=== PATIENT | male | born 1960 | race Caucasian/White ===

== ENCOUNTER 2016-11-29 06:48 | Day surgery (SDC) | payer MEDICARE, OTHER ==
[~2016-11-29] VITALS: Ht 182.9 cm; Wt 109.1 kg
[~2016-11-29 06:48] MED LIST: AMLO10TA2 PO; ATOR40TA16 PO; BENA25TA3 PO; CYCL1TAB29 PO; DIAZ10TA PO; DOXA1TAB34 PO; FLUT1SPR5 EACH NARE; FURO40TA PO; HYDR-3580 PO; METH10TA PO; METO10TA PO; PANT40TA3 PO; PRAM0.5T PO; TRAZ150T75 PO
[2016-11-29 07:17] VITALS: BP 165/97; PULSE 75; RESP 20; TEMP 98.1; O2SAT 94
[2016-11-29] MEDS ORDERED: LACTATED RINGER'S 1000 ML INJ 1,000 ML IV SCH ×2 (07:30→09:47)
[2016-11-29] MEDS ORDERED: DIAZEPAM 5 MG TAB PO SCH (07:30)
[2016-11-29 08:31] LABS: AUTOMATED NEUTROPHIL # 3.3 TH/MM3 (1.8-7.7); BASOPHIL # 0.1 TH/MM3 (0-0.2); BASOPHIL % 1.2 % (0.0-2.0); EOSINOPHIL # 0.2 TH/MM3 (0-0.4); EOSINOPHIL % 3.8 % (0.0-4.0); HEMO FLAGS DIFF FINAL; LYMPH % 29.9 % (9.0-44.0); LYMPHOCYTE # 1.7 TH/MM3 (1.0-4.8); MEAN CELL VOLUME 90.8 FL (80.0-100.0); MEAN CORPUSCULAR HGB CONC 33.1 % (32.0-36.0); MONO % 7.4 % (0.0-8.0); NEUT % 57.7 % (16.0-70.0); PLATELET COUNT 129 TH/MM3 (150-450); RED BLOOD COUNT 4.63 MIL/MM3 (4.50-5.90); RED CELL DISTRIBUTION WIDTH 13.9 % (11.6-17.2); WHITE BLOOD COUNT 5.7 TH/MM3 (4.0-11.0)
[2016-11-29 08:37] LABS: APTT (PATIENT) 29.9 SEC (24.3-30.1); INTERNATIONAL NORMALIZED RATIO 0.9 RATIO; PROTHROMBIN TIME - PATIENT 10.2 SEC (9.8-11.6)
[2016-11-29 08:47] LABS: BICARBONATE 32.1 MEQ/L (21.0-32.0); POTASSIUM 3.7 MEQ/L (3.5-5.1)
[2016-11-29] MEDS ORDERED: SODIUM CHLOR 0.9% 1000 ML INJ 1,000 ML IV PRN (09:47)
--- NOTE | 2016-11-29 09:49 | PD.RAD ---
Post Procedure Progress Note Pre Procedure Diagnosis: (1) Cervical disc disorder with radiculopathy (2) Postlaminectomy syndrome, lumbar (3) Facet arthropathy, lumbar (4) Lumbar degenerative disc disease Post Procedure Diagnosis: (1) Postlaminectomy syndrome, lumbar (2) Cervical disc disorder with radiculopathy (3) Degenerative cervical spinal stenosis (4) Degenerative disc disease, cervical (5) Facet arthropathy, lumbar (6) Lumbar degenerative disc disease (7) Low back pain Procedure Date: Nov 29, 2016 Supervising Radiologist: Gavino Johnson Proceduralist/Assist: Angela Carrintgon, RT(R), Clotilde Blancas RT(R), Clotilde Marques RT(R)() Estimated blood loss: 0 Plan of Activity Patient to Unit: ROPU Patient Condition: Good Additional Comments: puncture at L2-3 See PACS Report for procedural detail/treatment Gavino Johnson MD Nov 29, 2016 09:49
[2016-11-29 09:55] VITALS: BP 158/84; PULSE 68; RESP 20; TEMP 97.9; O2SAT 93
[2016-11-29] MEDS ORDERED: oxyCODONE/ACETAMINOPHEN 5 MG/325 MG TAB PO PRN (10:00)
[2016-11-29] MEDS ORDERED: MORPHINE SULFATE 4 MG/ML INJ IM PRN (10:00)
[2016-11-29] MEDS ORDERED: ONDANSETRON HCL 4 MG/2 ML VIAL IV PRN (10:00)
[2016-11-29] MEDS ORDERED: ACETAMINOPHEN 325 MG TAB PO PRN (10:00)
--- NOTE | 2016-11-29 10:43 | RADRPT ---
EXAM DATE/TIME: 11/29/2016 09:39 [facility] COMPARISON: No previous studies available for comparison. INDICATIONS : Patient with a history of spinal stenoisi. MEDICAL HISTORY : CHF HTN GERD Renal Disease Rheumatoid Arthritis SURGICAL HISTORY : Laminectomy Spinal fusion Spinal stimulator Kidney removal ENCOUNTER: Initial ACUITY: > 1 year PAIN SCORE: 7/10 LOCATION: Low back LUMBAR PUNCTURE TIME: 0939 hours FLUORO TIME: 0.63 minutes IMAGE SERIES: 2 CONTRAST: 18 cc Omnipaque (iohexol) 300 ACCESS LEVEL: L2-3 PROCEDURE : 1. Fluoroscopic guided lumbar puncture. 2. Instillation of intrathecal contrast. 3. Lumbar myelogram. 4. Cervical myelogram. The risks, benefits and alternatives to the procedure were explained and verbal and written consent w as obtained. The site was prepped in sterile fashion. Full sterile technique was used, including ca p, mask, sterile gloves and gown and a large sterile sheet. Hand hygiene and 2% chlorhexidine and/or betadine/alcohol prep was utilized per protocol for cutaneous antisepsis. The skin and subcutaneous tissues were infiltrated with local anesthetic solution. With fluoroscopic guidance the lumbar thecal sac was punctured at level above and a diagnostic quanti ty of contrast is present in the subarachnoid space. Following the lumbar radiographs contrast was pl aced in the cervical region under fluoroscopic guidance. The patient tolerated procedure well and there were no complications. CT scan is to be performed for further evaluation. CONCLUSION: Uncomplicated lumbar and cervical myelogram as above. CT scan is to be performed for further evaluat ion. Gavino Johnson MD on November 29, 2016 at 10:40 Board Certified Radiologist. This report was verified electronically.
--- NOTE | 2016-11-29 11:37 | RADRPT ---
EXAM DATE/TIME: 11/29/2016 10:47 [facility] COMPARISON: No previous studies available for comparison. INDICATIONS : Post Myelogram. RADIATION DOSE: 30.81 CTDIvol (mGy) CT of thecervical spine was performed post myelogram. MEDICAL HISTORY : SURGICAL HISTORY : ENCOUNTER: Subsequent ACUITY: 1 day PAIN SCALE: LOCATION: TECHNIQUE: Volumetric scanning of the cervical spine was performed. Multiplanar reconstructions in the sagittal, coronal and oblique axial planes were performed. Using automated exposure control and adjustment o f the mA and/or kV according to patient size, radiation dose was kept as low as reasonably achievable to obtain optimal diagnostic quality images. FINDINGS: VERTEBRAE: Normal vertebral body height. No abnormal focal bony lesion. ALIGNMENT: Sagittal alignment is maintained. SOFT TISSUES: Visualized paraspinal soft tissues are within normal limits. thyroid appears unremarkable by CT. Visu alized lung apices are clear. C2-C3: The bony spinal canal is normal in size. No evidence of disc bulge or herniation. The neural forami na are bilaterally patent. C3-C4: Central disc protrusion with mild effacement of the anterior thecal sac. Mild right and moderate left facet arthropathy. Central canal is patent and measuring 1.3 cm. No significant neuroforaminal steno sis. C4-C5: Mild diffuse disc bulge with subtle posterior osteophytes. Central canal is patent. No significant ne ural frontal stenosis. C5-C6: Moderate disc space loss with endplate sclerosis and eccentric posterior left-sided osteophyte format ion. Resultant eccentric effacement of the left anterior lateral recess. Moderate to severe left fora karis stenosis secondary to osteophyte. C6-C7: Moderate severe disc space loss with endplate sclerosis and anterior osteophyte formation. No signifi cant central canal stenosis. Mild to moderate bilateral neuroforaminal stenosis secondary to osteophy te. C7-T1: Moderate disc space loss with minimal osteophyte formation. No significant central canal stenosis. No significant neuroforaminal stenosis. CONCLUSION: 1. Multilevel degenerative spondylosis of the cervical spine with effacement of the left anterior la teral recess secondary to eccentric posterior left-sided osteophyte formation at C5-6. 2. There are varying degrees of neural foraminal stenosis most prominently at C5-6 and C6-7, as above . Gavino Johnson MD on November 29, 2016 at 11:12 Board Certified Radiologist. This report was verified electronically.
--- NOTE | 2016-11-29 12:05 | RADRPT ---
EXAM DATE/TIME: 11/29/2016 10:54 [facility] COMPARISON: No previous studies available for comparison. INDICATIONS : Post Myelogram. RADIATION DOSE: 42.05 CTDIvol (mGy) CT of the lumbar spine was performed post myelogram. MEDICAL HISTORY : SURGICAL HISTORY : ENCOUNTER: Subsequent ACUITY: 1 day PAIN SCALE: 1/10 LOCATION: TECHNIQUE: Volumetric scanning of the lumbar spine was performed. Multiplanar reconstructions in the sagittal, coronal and oblique axial planes were performed. Using automated exposure control and adjustment of the mA and/or kV according to patient size, radiation dose was kept as low as reasonably achievable t o obtain optimal diagnostic quality images. FINDINGS: VERTEBRAE: There are 6 apparent lumbar-type vertebral bodies. Vertebral body heights are intact. Posterior nabor a nd screw fixation extending from L5-S1. Hardware appears intact without evidence for significant loos ening. ALIGNMENT: Grade 1 retrolisthesis of L5 on L6. Grade 1 anterolisthesis of L6 on S1. Soft tissues: There are [address], anterior and posterior. Leads enter at T12-L1 and project ceph alad. Surgical clips in the left periaortic region consistent with prior nephrectomy. Mild atheroscle rotic calcifications of the abdominal aorta. T12-L1: The thecal sac has a normal diameter. No evidence of disc bulge or protrusion. The neural foramina are patent bilaterally. L1-L2: Subtle diffuse disc bulge without significant central canal or neuroforaminal stenosis. L2-L3: Minimal diffuse disc bulge without significant central canal or neuroforaminal stenosis. L3-L4: Mild diffuse disc bulge, mild ligamentum flavum hypertrophy and mild bilateral facet arthropathy. Hamlet tral canal measures 1.4 cm. Mild caudal right neural foraminal narrowing. L4-L5: Severe joint space loss and vacuum disc phenomenon with significant endplate sclerosis. Posterior ost eophyte complex with severe bilateral facet arthropathy. Central canal measures approximately 12 mm. Mild to moderate left and moderate right neuroforaminal stenosis due to osteophyte. L5-L6: L6 laminectomy. Partial bony fusion. Posterior osteophyte complex resulting in moderate right and sev ere left neural foraminal stenosis. L6-S1: S1 laminectomy. Partial bony fusion. Posterior ossified complex resulting in mild bilateral neurofora karis stenosis. CONCLUSION: 1. 6 apparent lumbar-type vertebral bodies with postsurgical features of prior L6 and S1 laminectomie s with posterior nabor and screw fixation of L5-S1. Hardware appears intact without evidence for loosen ing. 2. Moderate to severe multilevel degenerative spondylosis without significant central canal stenosis. Varying degrees of neural foraminal stenosis, as above. Gavino Johnson MD on November 29, 2016 at 11:36 Board Certified Radiologist. This report was verified electronically.
[2016-11-29] MEDS ORDERED: MORPHINE SULFATE 8 MG/ML INJ ONE (12:41)
[2016-11-29 13:20] VITALS: BP 135/74; PULSE 76; RESP 16; O2SAT 92
[2016-12-17] MEDS ORDERED: POTA1TAB4 PO (16:48)
[2016-12-18] MEDS ORDERED: BENA25CA4 PO (08:36)
[2016-12-18] MEDS ORDERED: TRAZ50TA12 PO (08:36)
== END 2016-11-29 13:30 | disposition home or self-care (01) ==
LOC: HROP 06:48 → HRIP 07:00 → HROP 13:30
PROVIDERS: ATTEND Neurological Surgery
DX: M96.1 Postlaminectomy syndrome, not elsewhere classified (principal); M50.10 Cervical disc disorder with radiculopathy, unspecified cervical region; M12.88 Other specific arthropathies, not elsewhere classified, other specified site; M50.322 Other cervical disc degeneration at C5-C6 level; M51.36 Other intervertebral disc degeneration, lumbar region; M48.02 Spinal stenosis, cervical region; M46.96 Unspecified inflammatory spondylopathy, lumbar region; I11.0 Hypertensive heart disease with heart failure; I50.9 Heart failure, unspecified; K21.9 Gastro-esophageal reflux disease without esophagitis; M06.9 Rheumatoid arthritis, unspecified; Z98.1 Arthrodesis status
CPT/HCPCS: 62305; 72125; 72131; 80048; 85025; 85610; 85730; J2270

== ENCOUNTER → 2016-12-17 | Outpatient (CLI) | payer MEDICARE, OTHER ==
[~2016-12-17] MED LIST changes: +BENA25CA4 PO; +POTA1TAB4 PO; +TRAZ50TA12 PO
[2016-12-17 12:30] LABS: AUTOMATED NEUTROPHIL # 4.6 TH/MM3 (1.8-7.7); BASOPHIL # 0.1 TH/MM3 (0-0.2); EOSINOPHIL # 0.3 TH/MM3 (0-0.4); EOSINOPHIL % 3.3 % (0.0-4.0); HEMATOCRIT 44.7 % (39.0-51.0); HEMO FLAGS DIFF FINAL; LYMPH % 28.4 % (9.0-44.0); LYMPHOCYTE # 2.3 TH/MM3 (1.0-4.8); MEAN CELL VOLUME 88.4 FL (80.0-100.0); MEAN CORPUSCULAR HEMOGLOBIN 30.8 PG (27.0-34.0); MEAN CORPUSCULAR HGB CONC 34.8 % (32.0-36.0); MONO % 9.9 % (0.0-8.0); NEUT % 57.4 % (16.0-70.0); PLATELET COUNT 165 TH/MM3 (150-450); RED BLOOD COUNT 5.06 MIL/MM3 (4.50-5.90); RED CELL DISTRIBUTION WIDTH 13.2 % (11.6-17.2); WHITE BLOOD COUNT 8.1 TH/MM3 (4.0-11.0)
[2016-12-17 12:39] LABS: APTT (PATIENT) 29.2 SEC (24.3-30.1); INTERNATIONAL NORMALIZED RATIO 0.9 RATIO
[2016-12-17 14:04] LABS: BLOOD, URINE NEG (NEG); GLUCOSE,URINE NEG (NEG); KETONE, URINE NEG (NEG); NITRITE,URINE NEG (NEG); PH, URINE 6.5 (5.0-8.5); URINE COLOR YELLOW (YELLW/STRAW)
[2016-12-17 14:06] LABS: COMMENT (UR) CULT NOT INDICATED; CULTURE IF INDICATED CULT NOT INDICATED
[2016-12-17 14:10] LABS: BLOOD UREA NITROGEN 22 MG/DL (7-18); GLOMERULAR FILTRATION RATE 48 ML/MIN (>89); GLUCOSE,FASTING 100 MG/DL (74-99)
[2016-12-17 14:11] LABS: ALKALINE PHOSPHATASE 87 U/L (45-117); ALT (GPT) 26 U/L (12-78); AST (GOT) 13 U/L (15-37); CHLORIDE 94 MEQ/L (98-107); SODIUM (NA) 134 MEQ/L (136-145); TOTAL BILIRUBIN ADULT 0.3 MG/DL (0.2-1.0)
[2016-12-17 14:12] LABS: ANION GAP 11 MEQ/L (5-15); BICARBONATE 29.2 MEQ/L (21.0-32.0)
[2016-12-17 14:25] LABS: POTASSIUM 2.8 MEQ/L (3.5-5.1)
--- NOTE | 2016-12-17 15:08 | RADRPT ---
EXAM DATE/TIME: 12/17/2016 12:55 [facility] COMPARISON: No previous studies available for comparison. INDICATIONS : Evaluate for pneumonia, pneumothorax or communicable disease. Pre op neck surgery. MEDICAL HISTORY : None. SURGICAL HISTORY : None. ENCOUNTER: Initial ACUITY: 1 day PAIN SCORE: 0/10 LOCATION: Bilateral chest FINDINGS: Heart size normal. Lungs are clear. The costophrenic angles are clear. The hilar structures are no rmal. There are two spinal leads in place projecting over the T9 and T10 levels. CONCLUSION: No acute abnormality is seen. Spinal leads are in place as described above. Ayo Hunter MD on December 17, 2016 at 14:26 Board Certified Radiologist. This report was verified electronically.
--- NOTE | 2016-12-18 17:10 | EKG ---
Date Performed: 12/17/2016 Time Performed: 12:28:49 PTAGE: 56 years EKG: Sinus rhythm RIGHT BUNDLE BRANCH BLOCK LEFT ANTERIOR FASCICULAR BLOCK ABNORMAL ECG PREVIOUS TRACING 05/24/2014 14.00.48 Compared to previous tracing, the patient now meets crite ted for a left anterior fascicular block. DOCTOR: Arabella Peralta Interpretating Date/Time 12/18/2016 17:07:21
== END ==
LOC: CPRE 11:57
PROVIDERS: ATTEND Neurological Surgery
DX: Z01.812 Encounter for preprocedural laboratory examination (principal); Z01.810 Encounter for preprocedural cardiovascular examination; Z01.811 Encounter for preprocedural respiratory examination; M48.02 Spinal stenosis, cervical region; M50.10 Cervical disc disorder with radiculopathy, unspecified cervical region; M50.30 Other cervical disc degeneration, unspecified cervical region; M51.36 Other intervertebral disc degeneration, lumbar region; I45.10 Unspecified right bundle-branch block; Z79.01 Long term (current) use of anticoagulants
CPT/HCPCS: 36415; 71020; 80053; 81001; 85025; 85610; 85730; 93005

== ENCOUNTER → 2017-02-20 | Outpatient (CLI) | payer MEDICARE, OTHER ==
[~2017-02-20] MED LIST changes: -BENA25TA3 PO; +HYDR-2376 PO; -HYDR-3580 PO; +HYDR-3583 PO; -PRAM0.5T PO; -TRAZ150T75 PO; +ZITHTAB PO
[2017-02-20 12:31] LABS: AUTOMATED NEUTROPHIL # 4.9 TH/MM3 (1.8-7.7); BASOPHIL # 0.1 TH/MM3 (0-0.2); BASOPHIL % 1.1 % (0.0-2.0); EOSINOPHIL # 0.3 TH/MM3 (0-0.4); EOSINOPHIL % 4.1 % (0.0-4.0); HEMATOCRIT 45.7 % (39.0-51.0); LYMPH % 20.7 % (9.0-44.0); LYMPHOCYTE # 1.5 TH/MM3 (1.0-4.8); MEAN CELL VOLUME 91.7 FL (80.0-100.0); MEAN CORPUSCULAR HEMOGLOBIN 31.3 PG (27.0-34.0); MEAN CORPUSCULAR HGB CONC 34.1 % (32.0-36.0); MONO % 6.3 % (0.0-8.0); NEUT % 67.8 % (16.0-70.0); PLATELET COUNT 156 TH/MM3 (150-450); RED BLOOD COUNT 4.98 MIL/MM3 (4.50-5.90); RED CELL DISTRIBUTION WIDTH 13.6 % (11.6-17.2); WHITE BLOOD COUNT 7.3 TH/MM3 (4.0-11.0)
[2017-02-20 12:43] LABS: HEMO FLAGS AUTO DIFF
[2017-02-20 12:44] LABS: APTT (PATIENT) 28.7 SEC (24.3-30.1); INTERNATIONAL NORMALIZED RATIO 0.9 RATIO; PROTHROMBIN TIME - PATIENT 9.7 SEC (9.8-11.6)
[2017-02-20 12:49] LABS: BLOOD, URINE NEG (NEG); COMMENT (UR) CULT NOT INDICATED; CULTURE IF INDICATED CULT NOT INDICATED; GLUCOSE,URINE NEG (NEG); HYALINE CAST, URINE 2 /lpf (RARE); KETONE, URINE NEG (NEG); MUCUS URINE FEW /lpf (OCC); NITRITE,URINE NEG (NEG); PH, URINE 5.5 (5.0-8.5); URINE COLOR LIGHT-YELLOW (YELLW/STRAW)
[2017-02-20 12:54] LABS: ANION GAP 7 MEQ/L (5-15); BICARBONATE 30.1 MEQ/L (21.0-32.0); BLOOD UREA NITROGEN 17 MG/DL (7-18); CHLORIDE 98 MEQ/L (98-107); GLOMERULAR FILTRATION RATE 46 ML/MIN (>89); GLUCOSE,FASTING 107 MG/DL (74-99); POTASSIUM 3.5 MEQ/L (3.5-5.1); SODIUM (NA) 135 MEQ/L (136-145)
[2017-02-20 12:56] LABS: ALT (GPT) 30 U/L (12-78); AST (GOT) 12 U/L (15-37)
[2017-02-20 12:58] LABS: ALKALINE PHOSPHATASE 88 U/L (45-117); TOTAL BILIRUBIN ADULT 0.3 MG/DL (0.2-1.0)
[2017-02-20 13:24] LABS: SCAN/DIFF AUTO DIFF CONFIRMED
== END ==
LOC: CPRE 11:36
PROVIDERS: ATTEND Neurological Surgery
DX: Z01.812 Encounter for preprocedural laboratory examination (principal); M48.02 Spinal stenosis, cervical region; M50.10 Cervical disc disorder with radiculopathy, unspecified cervical region; M50.30 Other cervical disc degeneration, unspecified cervical region; M51.36 Other intervertebral disc degeneration, lumbar region; Z79.01 Long term (current) use of anticoagulants
CPT/HCPCS: 36415; 80053; 81001; 85025; 85610; 85730

== ENCOUNTER 2017-02-25 06:18 | Observation (INO) | payer MEDICARE, OTHER ==
--- NOTE | 2017-02-22 17:43 | MH ---
cc: ESTRADA AGUILAR M.D., ROHIT AHUJA,SHLOMO Benedict MD DATE OF ADMISSION 02/25/2017 ADMISSION DIAGNOSIS Cervical stenosis. HISTORY OF PRESENT ILLNESS This is a 57-year-old male who presented to us for evaluation of neck and low back pain. He has had neck pain since 1997 and it has progressively gotten worse and has been really bad over the last five years. He states he has difficulty turning his head to the right secondary to an exacerbation of his neck pain. He states the pain radiates into the upper extremities and he has paresthesias in his hands. He states his left upper extremity pain is worse than the right upper extremity. Hand tingling and numbness is intermittent. He also relates some weakness in his hands. He states he has some episodes of feeling like the room is spinning. It feels like he could fall. He has urinary urgency and states that he has one kidney and he has donated his other daily to his sister. He also has a history of low back pain since 1992. He saw a chiropractor up until 1997 and states that in 1997 he was digging a ditch and developed severe low back pain. He states he had a laminectomy which did not help him. He subsequently had a L4-S1 fusion with pedicle screw fixation by Dr. Melo in 1999. He states when he woke up from surgery he had even more pain in his legs. He has a spinal stimulator which helps with his lower extremity pain and has a neuro stimulator that helps with his low back pain. He states his legs buckle at times and he falls, although does not use a walker or cane. He states the pain in his low back feeling like an ice pick in his taibone. He feels a burning acid type of pain in his lower extremities and feels like his toes are being smashed with a hammer. PAST MEDICAL HISTORY 1. Heart failure, 2. Hypertension, 3. Gastroesophageal reflux disease, 4. Kidney disease, 5. Rheumatoid arthritis, 6. Headaches 7. Chronic pain. PAST SURGICAL HISTORY 1. 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 Deviated septum 1989, 3. Lumbar laminectomy in 1998 4. Back fusion with hardware in 1999, 5. Spinal stimulator in 2002 which was then replaced in 2006 6. Lower back stimulator in 2012. MEDICATIONS current, 1. Amlodipine 10 mg daily 2. Furosemide 40 mg daily. 3. Pantoprazole 40 mg daily. 4. Diazepam 10 mg three times a day. 5. Cyclobenzaprine three times a day. 6. Atorvastatin 40 mg daily. 7. Hydrocodone 7.5/325 daily. 8. Doxazosin 4 mg q.h.s. 9. Methadone 10 mg b.i.d. 10. Flonase 50 mg 2 sprays each nostril twice a day. 11. Trazodone 150 mg q.h.s. 12. Pramipexole 0.5 mg q.h.s. 13. Metoclopramide 10 mg b.i.d. 14. Benadryl [id number] two at bedtime 15. Tums p.r.n. ALLERGIES STEROIDS - CAUSES SHAKY FEELING FAMILY HISTORY Father is alive 79 years old, has a history of arthritis and neuropathy. His mother is alive 77 years old, has a pacemaker. Brother is alive 57 years old, another brother who is alive, another sister who is alive 57 years old, had diabetes and the kidney transplant and a sister who is alive at 53 years old that has leukopenia SOCIAL HISTORY He is retired and disabled. He is . He has two children. He lives by myself. He drinks zero to two drinks of alcohol per day. REVIEW OF SYSTEMS CONSTITUTIONAL: Denies any fever. Positive for chills. EARS, NOSE AND THROAT: No pharyngitis, exudates or bloody drainage from his nose CARDIOVASCULAR: Denies any chest pain or palpitations RESPIRATORY: No cough. Positive for shortness of breath. GENITOURINARY: No dysuria. Positive for urinary frequency and urgency. MUSCULOSKELETAL: Positive for neck and low back pain. SKIN: Positive for rashes and itching. NEUROLOGIC: No difficulty with memory. Positive for some difficulty with speech GASTROINTESTINAL: No diarrhea, constipation. PSYCHIATRIC: No anxiety. Positive for depression symptoms ENDOCRINE: Positive for polyuria, polydipsia. HEMATOLOGIC: Positive for bruising or bleeding tendencies. LABORATORY DATA REVIEWED CT myelogram of the cervical spine from December 02, 2016 reveals severe C5-C6 and C6-C7 degenerative disk disease with end plate sclerosis and disk height collapse. There is severe bilateral left more than right foraminal stenosis prominent at the C5-C6 level but also the C6-C7 level. CT myelogram of the lumbar spine reveals previous L4-S1 bilateral pedicle screws with interbody fusion. There is severe L3-L4 degenerative disk disease with disk height collapse and end plate changes. IMPRESSION A 56-year-old male with chronic neck and low back pain with a failed back syndrome with a history of previous lumbar spine surgeries with the last one being an L4-S1 fusion with pedicle screws. He has spinal stimulator in place. CT myelogram reveals severe C5-C6 and C6-C7 degenerative disk disease with mild spinal but significant foraminal stenosis. He has adjacent segment disease in his lumbar spine with severe L3-L4 degenerative disk disease with disk height collapse. He is miserable with his level of discomfort and is requesting surgical intervention. He wants to address the cervical spine first. PLAN We have discussed with the patient a C5-C6 and C6-C7 microdiskectomy with fusion. The procedure as well as the risk, benefit, alternative and recovery time were explained in great detail with the patient. We have discussed the risks involved with surgery include but not limited to bleeding, infection, muscle weakness, voice hoarseness, difficulty swallowing, heart attack, stroke, blood clots, non-fusion, scar tissue formation, among others. We have described the procedure using spine models in the office and all of his questions were answered to his satisfaction. The patient is requesting that we proceed and he is therefore scheduled accordingly. ADDENDUM PHYSICAL EXAMINATION GENERAL: Patient is in no acute distress and is pleasant. HEAD: Normocephalic, atraumatic. NECK: Supple. No carotid bruits heard on auscultation. LUNGS: Clear to auscultation bilaterally. HEART: Regular rate and rhythm, normal S1, S2. ABDOMEN: Abdomen is soft, nontender. Positive bowel sounds. SKIN: Reveals no cyanosis or erythema. He has a midline lumbar incision as well as paraspinal incision sites for stimulator battery placement that are well-healed. MUSCULOSKELETAL: He has 5/5 strength in the upper extremities. He has 4/5 left iliopsoas strength. He ambulates without any assistive device. He has restricted range of motion especially with extension and can rotate only about [address] with pain. NEUROLOGIC: He is awake, alert, oriented. Cranial nerves II-XII grossly intact. Speech is fluent. Comprehension is good. His sensation is intact in the extremities. Dictated by Kvng Patel PA-C MD CHEN Hou /4:38 PM /9:24 AM
[~2017-02-25] VITALS: Ht 182.9 cm; Wt 110.4 kg
[~2017-02-25 06:18] MED LIST changes: -HYDR-2376 PO; -HYDR-3583 PO
[2017-02-25] MEDS ORDERED: VANCOMYCIN 1,000 MG/NS 250ML (for <70 kg) IV SCH ×2 (07:00)
[2017-02-25] MEDS ORDERED: INSULIN HUMAN REGULAR 1,000 UNITS/10 ML VIAL SQ PRN (07:00)
[2017-02-25] MEDS ORDERED: LACTATED RINGER'S 1000 ML IV PRN (07:00)
[2017-02-25] MEDS ORDERED: SODIUM CHLORID 0.9% 500 ML IV PRN (07:00)
[2017-02-25] MEDS ORDERED: SODIUM CHLOR 0.9% 1000 ML INJ 1,000 ML IV SCH (07:00)
[2017-02-25] MEDS ORDERED: POVIDONE IODINE 5% (ANTISEPSIS KIT) 4 APPLICATIONS EACH NARE PRN (07:00)
[2017-02-25] MEDS ORDERED: METOPROLOL TARTRATE 25 MG TAB PO PRN (07:00)
[2017-02-25] MEDS ORDERED: CHLORHEXIDINE GLUCONATE 2 % 1 PACK (2 CLOTHS) TOPICAL PRN (07:00)
[2017-02-25] MEDS ORDERED: HYDR-2376 PO (07:17)
[2017-02-25] MEDS ORDERED: ACETAMINOPHEN 1000 MG/100 ML 100 ML IV ONE (07:21)
[2017-02-25] MEDS ORDERED: DICLOFENAC SODIUM 37.5 MG/ML VIAL IV PUSH ONE (07:21)
[2017-02-25] MEDS ORDERED: THROMBIN (TOPICAL) 5,000 UNIT VIAL ONE ×2 (07:22→10:28)
[2017-02-25] MEDS ORDERED: VANCOMYCIN HCL 1000 MG VIAL ONE (07:22)
[2017-02-25] MEDS ORDERED: GELFOAM SIZE 100 ONE (07:22)
[2017-02-25] MEDS ORDERED: BUPIVACAINE/EPINEPHRINE 0.5% 50 ML VIAL ONE (07:27)
[2017-02-25] MEDS ORDERED: FAMOTIDINE 20 MG/2 ML VIAL ONE (08:15)
[2017-02-25] MEDS ORDERED: MIDAZOLAM HCL 2 MG/2 ML VIAL ONE (08:15)
[2017-02-25] MEDS ORDERED: ACETAMINOPHEN/HYDROcodone 325 MG/10 MG TAB PO PRN (11:30)
[2017-02-25] MEDS ORDERED: SODIUM CHLORIDE 0.9% FLUSH 10 ML FLUSH IV FLUSH PRN (11:30)
[2017-02-25] MEDS ORDERED: ACETAMINOPHEN 325 MG TAB PO PRN (11:30)
[2017-02-25] MEDS ORDERED: cloNIDine HCL 0.1 MG TAB PO PRN (11:30)
[2017-02-25] MEDS ORDERED: POTASSIUM CHLOR 20 MEQ PREMIX 100 ML IV PRN (11:30)
[2017-02-25] MEDS ORDERED: RESP: ALBUTEROL 2.5 MG/3 ML NEB (PRN) NEB (11:30)
[2017-02-25] MEDS ORDERED: ONDANSETRON HCL 4 MG/2 ML VIAL IV PRN (11:30)
[2017-02-25] MEDS ORDERED: MENTHOL LOZENGE BUCCAL PRN (11:30)
[2017-02-25] MEDS ORDERED: MAGNESIUM HYDROXIDE SUSP 30 ML CUP PO PRN (11:30)
[2017-02-25] MEDS ORDERED: PROMETHAZINE INJ 25 MG/ML VIAL IM PRN (11:30)
[2017-02-25] MEDS ORDERED: MAGNESIUM SULFATE INJ 2 GM in SODIUM CHLORIDE 0.9% INJ 100 ML IV PRN (11:30)
[2017-02-25] MEDS ORDERED: ZOLPIDEM TARTRATE 5 MG TAB PO PRN (11:30)
[2017-02-25] MEDS ORDERED: CALCIUM GLUCONATE INJ 1 GM in SODIUM CHLORIDE 0.9% INJ 100 ML IV PRN (11:30)
[2017-02-25] MEDS ORDERED: ALUMINUM/MAGNESIUM/SIMETH 30 ML CUP PO PRN (11:30)
--- NOTE | 2017-02-25 11:42 | PD.OP ---
Jacob Pennington MD Operative Report Date of Surgery: Feb 25, 2017 Preoperative Diagnosis: Intractable neck pain with radiculopathy; severe C5-6 and C6-7 disc degeneration with disc osteophyte complex and associated foraminal stenosis Postoperative Diagnosis: Same Procedure: Anterior cervical C5-6 and C6-7 interbody fusion; anterior C5-7 cervical plate placement; C5-6 and C6 7 interbody cage placement; microsurgical technique Anesthesia: Gen. endotracheal by Salvador Ash Surgeon: Harrison Kim M.D. Back Order Clerk(s): Melissa Campos Operation and Findings: Following administration of general endotracheal anesthesia, the patient received a gram of vancomycin and Decadron 10 mg intravenously. Sequential compression devices were placed in supine position on a Vishnu table and all pressure points adequately padded. The head secured in a donut and anterior cervical region then shaved and prepped with Chloraprep and sterilely draped with Ioban along with the usual sterile draping. A transverse skin incision on the left side of the neck was then made after infiltrating the skin with 0.5% Marcaine with epinephrine solution extending down through the platysma. At the anterior border of the sternocleidomastoid further dissection was undertaken developing a plane between the carotid sheath laterally and the trachea esophagus medially. The prevertebral fascia was exposed and dissected out. The medial attachments of the longus colli muscles were detached and a self- retaining retractor used for exposure. The C5-6 disc space was localized with a marking the disc space and using lateral fluoroscopy. [place] distraction screws 14 mm length were placed one in the C5 and one in the C7 body interbody distraction and exposure. There was significant disc degeneration with disc height collapse and anterior osteophytes noted at the C5-6 and C6-7 leves and the osteophytes were resected with a Leksell and annulus incised with a 15 blade and further dissection undertaken using microtechnique with microscope magnification. Diskectomy was undertaken with pituitaries and the endplates were also decorticated with curettes and drill bit. And more posteriorly there was disk osteophyte complex compressing the thecal sac along with a significant uncovertebral joint hypertrophy with foraminal stenosis which was decompressed along with removal of the posterior longitudinal ligaments at both levels. The foramen was decompressed bilaterally using a Kerrison's and palpation with a nerve hook, the exiting nerve roots were felt to be free. The area was then copiously irrigated. I then placed a Peek cage packed with local autograft bone at the C5-6 and C6-7 interspace under fluoroscopy guidance. [place] distraction pins were removed and the holes plugged with Gelfoam for hemostasis. In order to facilitate the fusion and provide stabilization, a Precision spine cervical plate was then placed with two 14 mm variable angle screws in the C5 body, one in the C6 body and two 14 mm fixed angle screws in the C7 body. The plate screw locking mechanism was then engaged. AP and lateral fluoroscopy confirmed good placement of the construct and the retractor was then removed. Muscular bleeding points were cauterized with bipolar cautery and Gelfoam was then also used for hemostasis which was removed. The platysma was then approximated using 3-0 Vicryl interrupted stitches and 3-0 Vicryl subcuticular stitch also placed in an interrupted fashion, and final skin closure was with Mastisol and Steri-Strips. Sterile dressing was then applied. The neck immobilized in a Roane J collar. The patient was then extubated and taken to the recovery room. There are no intraoperative complications and all sponge and needle counts were correct at the end of procedure. Estimated blood loss was about 30 cc. The patient did undergo intraoperative neurologic monitoring which remained stable throughout the surgery. Harrison Kim MD Feb 25, 2017 11:42
[2017-02-25] MEDS ORDERED: *morphine SULFATE 8 MG/ML PERIprocedure ONLY ONE ×3 (11:53→14:14)
[2017-02-25] MEDS ORDERED: ONDANSETRON HCL 4 MG/2 ML VIAL IV PUSH ONE (12:00)
[2017-02-25] MEDS: NS + KCL 20 MEQ INJ 1,000 ML IV SCH (12:00)
[2017-02-25] MEDS ORDERED: PROPOFOL 200 MG/20 ML AMP IV ONE (12:00)
[2017-02-25] MEDS ORDERED: DO NOT ADM ANY ANTICOAGULANT DRUGS PRN (12:30)
[2017-02-25 12:59] LABS: BICARBONATE 25.5 MEQ/L (21.0-32.0); POTASSIUM 4.1 MEQ/L (3.5-5.1)
--- NOTE | 2017-02-25 13:38 | RADRPT ---
EXAM DATE/TIME: 02/25/2017 08:40 [facility] COMPARISON: No previous studies available for comparison. INDICATIONS : Post-op C5-C6 and C6-C7 anterior cervical fusion. MEDICAL HISTORY : None. SURGICAL HISTORY : None. ENCOUNTER: Subsequent ACUITY: 1 day PAIN SCORE: Non-responsive. LOCATION: neck FINDINGS: Status post anterior cervical fusion from C5-C7. Alignment is anatomic in the lateral projection. CONCLUSION: Alignment status post fusion from C5-C7. Rivas Shelley MD FACR on February 25, 2017 at 13:28 Board Certified Radiologist. This report was verified electronically.
--- NOTE | 2017-02-25 13:39 | RADRPT ---
EXAM DATE/TIME: 02/25/2017 08:40 [facility] COMPARISON: No previous studies available for comparison. INDICATIONS : C5-C6 and C6-C7 anterior cervical fusion. Level localization. MEDICAL HISTORY : None. SURGICAL HISTORY : None. ENCOUNTER: Subsequent ACUITY: 1 day PAIN SCORE: Non-responsive. LOCATION: neck FINDINGS: Metallic probe is directed at C5-C6. CONCLUSION: Probe at C5-C6. Rivas Shelley MD FACR on February 25, 2017 at 13:36 Board Certified Radiologist. This report was verified electronically.
[2017-02-25] MEDS: CYCLOBENZAPRINE HCL 10 MG TAB PO SCH ×2 (15:09→17:54)
[2017-02-25] MEDS: ACETAMINOPHEN/HYDROcodone 325 MG/10 MG TAB PO PRN ×2 (15:11→19:55)
[2017-02-25] MEDS: DIAZEPAM 10 MG TAB PO PRN ×2 (15:14→20:08)
[2017-02-25] MEDS: MORPHINE SULFATE 4 MG/ML INJ IV PRN ×2 (16:25→18:10)
[2017-02-25 16:30] VITALS: BP 122/63; PULSE 74; RESP 20; TEMP 97.7; O2SAT 97
[2017-02-25] MEDS ORDERED: LORazepam 1 MG TAB PO ONE (17:15)
[2017-02-25] MEDS: METOCLOPRAMIDE HCL 10 MG TAB PO SCH ×2 (18:05→19:56)
[2017-02-25] MEDS: DOCUSATE SODIUM 100 MG CAP PO SCH (19:55)
[2017-02-25] MEDS: METHADONE HCL 10 MG TAB PO SCH (19:55)
[2017-02-25] MEDS: ATORVASTATIN 40 MG TAB PO SCH (19:55)
[2017-02-25] MEDS: SODIUM CHLORIDE 0.9% FLUSH 10 ML FLUSH IV FLUSH SCH (19:56)
[2017-02-25] MEDS: traZODone HCL 50 MG TAB PO SCH (19:56)
[2017-02-25] MEDS: FLUTICASONE PROPIONATE 50 MCG/ACT 16 GM NASAL SPRAY NASAL SCH (19:57)
[2017-02-25] MEDS: diphenhydrAMINE HCL 25 MG CAP PO PRN (20:08)
[2017-02-25 20:37] VITALS: BP 126/69; PULSE 78; RESP 18; TEMP 97.5; O2SAT 97
[2017-02-25] MEDS ORDERED: NON-FORMULARY DRUG (Fluticasone Nasal Spray (Flonase Nasal Spray) 50 MCG) EACH NARE SCH (21:00)
[2017-02-26] VITALS (8 sets, daily range): BP systolic 120–144; BP diastolic 60–80; PULSE 70–79; RESP 16–18; TEMP 97.3–98.6; O2SAT 96–98
[2017-02-26] MEDS: ACETAMINOPHEN/HYDROcodone 325 MG/10 MG TAB PO PRN ×5 (00:25→21:29)
[2017-02-26] MEDS: NS + KCL 20 MEQ INJ 1,000 ML IV SCH (01:27)
[2017-02-26] MEDS: MORPHINE SULFATE 4 MG/ML INJ IV PRN ×6 (01:29→20:39)
[2017-02-26] MEDS: CYCLOBENZAPRINE HCL 10 MG TAB PO SCH ×3 (08:52→17:32)
[2017-02-26] MEDS: DOCUSATE SODIUM 100 MG CAP PO SCH ×2 (08:52→21:28)
[2017-02-26] MEDS: AZITHROMYCIN 250 MG TAB PO SCH (08:52)
[2017-02-26] MEDS: PANTOPRAZOLE SOD 40 MG DELAYED RELEASE TAB PO SCH (08:53)
[2017-02-26] MEDS: METOCLOPRAMIDE HCL 10 MG TAB PO SCH ×4 (08:54→21:29)
[2017-02-26] MEDS: METHADONE HCL 10 MG TAB PO SCH ×2 (08:54→21:28)
[2017-02-26] MEDS: FUROSEMIDE 40 MG TAB PO SCH (08:56)
[2017-02-26] MEDS: DOXAZOSIN MESYLATE 4 MG TAB PO SCH (08:57)
[2017-02-26] MEDS: SODIUM CHLORIDE 0.9% FLUSH 10 ML FLUSH IV FLUSH SCH ×2 (08:58→21:00)
[2017-02-26] MEDS: FLUTICASONE PROPIONATE 50 MCG/ACT 16 GM NASAL SPRAY NASAL SCH ×2 (09:00→21:00)
--- NOTE | 2017-02-26 09:56 | HHI.NSPN ---
(Moses Patel) History Chief Complaint: mild incisional soreness (Moses Patel) Interval History 02/26/17: Patient underwent a C5/C6 and C6/C7 anterior cervical fusion on . He states he is doing well with mild incisional soreness. No radiculopathy in the upper extremity's. He has mild paresthesias in his hands which is stable. He states he has not ambulated this morning. Blake catheter was removed this morning and patient has not voided yet. (Moses Patel) Review of Systems General: Negative for: fever, chills, insomnia Respiratory: Negative for: shortness of breath, cough, sputum Cardiovascular: Negative for: chest pain Gastrointestinal: Negative for: nausea, vomitting, diarrhea, constipation ( Moses Patel) Exam Results Vital Signs Date Time Temp Pulse Resp B/P (MAP) Pulse Ox O2 Delivery O2 Flow Rate FiO2 02/26/17 08:57 97.3 70 18 133/74 (93) 96 02/25/17 14:30 Nasal Cannula 2 Intake and Output 02/26/17 02/26/17 02/26/17 07:59 15:59 23:59 Output Total 1000 ml Balance -1000 ml (Moses Patel) Physical Examination Resp: CTA bilaterally Heart: NSR no murmurs Abd: Soft positive bs Skin: No cyanosis or erythema. Incision clean and dry. New bandage placed. Muscle: Moves all 4 extremities well. Neuro: Pt awake and alert. Follows commands well. Speech clear and appropriate. (Moses Patel) Lab, Micro, Other Results Last Impressions Cervical Spine X-Ray 02/25/17 0000 Signed Impressions: Service Date/Time: Saturday, February 25, 2017 08:40 - CONCLUSION: Alignment status post fusion from C5-C7. Rivas Shelley MD FACR Laboratory Tests Test 02/25/17 12:29 Blood Urea Nitrogen 14 MG/DL Creatinine 1.35 MG/DL Random Glucose 107 MG/DL Calcium Level 8.3 MG/DL Sodium Level 142 MEQ/L Potassium Level 4.1 MEQ/L Chloride Level 106 MEQ/L Carbon Dioxide Level 25.5 MEQ/L Anion Gap 11 MEQ/L Estimat Glomerular Filtration Rate 55 ML/MIN (Moses Patel) Medical Decision Making Impression and Plan A: 57-year-old male status post C5/C6 and C6/C7 anterior cervical fusion with cages and cervical plate placement. P: We'll give patient up out of bed and ambulate. Ensure patient is voiding after catheter removed. Discussed with case management as patient lives alone, we have qualification versus home health care. (Moses Patel) Attending Statement The exam, history, and the medical decision-making described in the above note were completed with the assistance of the mid-level provider. I reviewed and agree with the findings presented. I attest that I had a [id number] encounter with the patient on the same day, and personally performed and documented my assessment and findings in the medical record. Relates that neck pain is improved although not very motivated to get out of bed even with nursing staff assistance. Has chronic low back pain issues also. He wants to explore his options regarding rehabilitation placement versus home health care as he lives alone. We'll consult physical therapy to increase his activity status. (Harrison Kim MD) Moses Patel Feb 26, 2017 09:56 Harrison Kim MD Feb 26, 2017 16:33
[2017-02-26] MEDS: DIAZEPAM 10 MG TAB PO PRN ×2 (18:15→21:29)
[2017-02-26] MEDS: diphenhydrAMINE HCL 25 MG CAP PO PRN (21:29)
[2017-02-26] MEDS: traZODone HCL 50 MG TAB PO SCH (21:29)
[2017-02-26] MEDS: ATORVASTATIN 40 MG TAB PO SCH (21:30)
[2017-02-27] MEDS: MORPHINE SULFATE 4 MG/ML INJ IV PRN ×3 (00:57→10:35)
[2017-02-27 01:25] VITALS: BP 132/69; PULSE 67; RESP 16; TEMP 97.4; O2SAT 98
[2017-02-27] MEDS: ACETAMINOPHEN/HYDROcodone 325 MG/10 MG TAB PO PRN ×2 (03:19→07:37)
[2017-02-27 05:17] VITALS: BP 121/69; PULSE 63; RESP 16; TEMP 97.6; O2SAT 96
[2017-02-27 09:02] VITALS: BP 131/69; PULSE 64; RESP 18; TEMP 97.5; O2SAT 98
[2017-02-27] MEDS: PANTOPRAZOLE SOD 40 MG DELAYED RELEASE TAB PO SCH (09:08)
[2017-02-27] MEDS: CYCLOBENZAPRINE HCL 10 MG TAB PO SCH ×2 (09:09→12:36)
[2017-02-27] MEDS: DOCUSATE SODIUM 100 MG CAP PO SCH (09:09)
[2017-02-27] MEDS: METOCLOPRAMIDE HCL 10 MG TAB PO SCH ×2 (09:09→12:37)
[2017-02-27] MEDS: AZITHROMYCIN 250 MG TAB PO SCH (09:09)
[2017-02-27] MEDS: METHADONE HCL 10 MG TAB PO SCH (09:10)
[2017-02-27] MEDS: SODIUM CHLORIDE 0.9% FLUSH 10 ML FLUSH IV FLUSH SCH (09:10)
[2017-02-27] MEDS: FLUTICASONE PROPIONATE 50 MCG/ACT 16 GM NASAL SPRAY NASAL SCH (09:24)
[2017-02-27] MEDS: FUROSEMIDE 40 MG TAB PO SCH (09:25)
[2017-02-27] MEDS: DOXAZOSIN MESYLATE 4 MG TAB PO SCH (09:25)
--- NOTE | 2017-02-27 11:37 | HHI.FF ---
Face to Face Verification Diagnosis: (1) Cervical disc disorder with radiculopathy (2) Degenerative cervical spinal stenosis (3) Degenerative disc disease, cervical (4) Low back pain (5) Postlaminectomy syndrome, lumbar (6) Facet arthropathy, lumbar (7) Lumbar degenerative disc disease (8) S/P lumbar spinal arthrodesis Physical Therapy Order: Evaluate and Treat, Improve ambulation, Strength and gait training Home Health Nursing Order: Wound care and dressing changes Nursing assessment with vital signs I have seen patient Talat Lemus on 02/27/17. My clinical findings support the need for the requested home health care services because: Deconditioned w/ increased weakness High risk of falls I certify that my clinical findings support that this patient is homebound because: Post-op weakness Unable to use public transportation Moses Patel Feb 27, 2017 11:37
[2017-02-27 12:50] VITALS: O2SAT 96
[2017-04-17] MEDS ORDERED: HYDR-3583 PO (14:28)
== END 2017-02-27 14:09 | disposition home health service (06) ==
LOC: HSDC 06:18 → HSDI 11:41 → N05A 14:58
PROVIDERS: ADMIT Neurological Surgery; ATTEND Neurological Surgery
DX: M48.02 Spinal stenosis, cervical region (principal); M50.10 Cervical disc disorder with radiculopathy, unspecified cervical region; M50.30 Other cervical disc degeneration, unspecified cervical region; M25.78 Osteophyte, vertebrae; M51.16 Intervertebral disc disorders with radiculopathy, lumbar region; R39.15 Urgency of urination; I50.9 Heart failure, unspecified; I11.0 Hypertensive heart disease with heart failure; K21.9 Gastro-esophageal reflux disease without esophagitis; M06.9 Rheumatoid arthritis, unspecified; N28.9 Disorder of kidney and ureter, unspecified; G89.29 Other chronic pain
CPT/HCPCS: 00600; 22551; 22552; 22853; 72020; 72040; 76000; 80048; 94150; 96374; 96376; 97162; C1713; G0378; G8987; G8988; J0131; J0690; J1130; J2250; J2270; J2405; J3010; J3370; J3480; J7030; J7050; J7120; L0150; L0172